=== PATIENT | female | born 1985 | race Caucasian/White ===

== ENCOUNTER → 2019-02-07 | Outpatient (CLI) | payer BC ==
--- NOTE | 2019-02-07 11:02 | Diagnostic Imaging Report ---
Indication: Bilateral flank pain and hematuria CT of the abdomen and pelvis without IV contrast. There is no prior study for comparison. The visualized portions of the lung bases are clear. There were no pleural fluid collections. There is no free intraperitoneal air. The liver shows no focal lesion. Gallbladder is surgically absent. Spleen shows no focal lesion is nonenlarged. The adrenals and pancreas appear normal. The kidneys bilaterally show no radiopaque calculi or hydronephrosis. There is no retroperitoneal mass or adenopathy. There's no ascites or abnormal fluid collection. Visualized bowel loops appear unremarkable. There is surgical scar in the intra-abdominal wall but no abnormal fluid collection. There is no abdominal wall hernia. The urinary bladder appears grossly unremarkable without contrast. Impression: Postop changes. No urinary tract stone or hydronephrosis. No abdominal mass or abnormal fluid collection. Dictated by: Dictated on workstation # [id number]
== END ==
LOC: RAD FS 10:33
PROVIDERS: ATTEND Nurse Practitioner Family
DX: N39.0 Urinary tract infection, site not specified (principal); Z98.890 Other specified postprocedural states
CPT/HCPCS: 74176

== ENCOUNTER → 2019-03-08 | Outpatient (CLI) | payer BC ==
--- NOTE | 2019-03-08 10:14 | Diagnostic Imaging Report ---
EXAMINATION: Lumbar spine at 9:25 AM INDICATION: Back pain AP, lateral and spot lateral views were obtained. There are no prior lumbar spine examinations available for comparison. The lateral view shows slight straightening of the lumbar spine. This may be secondary to muscle spasm and/or positioning. There is narrowing of the disc space at L5-S1. The other intervertebral disc spaces are well maintained. There is no fracture or acute bony abnormality appreciated. There is no sign of paraspinal mass. There is mild symmetrical sclerosis of the sacroiliac joints. IMPRESSION: 1. There is no evidence for an acute bony abnormality. 2. There is degenerative disc disease at L5-S1. If there is clinical concern regarding spinal stenosis or nerve root encroachment at this level, then MRI would be recommended for further study. Dictated by: Dictated on workstation # [id number]
== END ==
LOC: RAD FS 09:18
PROVIDERS: ATTEND Nurse Practitioner Family
DX: M51.26 Other intervertebral disc displacement, lumbar region (principal); M51.37 Other intervertebral disc degeneration, lumbosacral region
CPT/HCPCS: 72100

== ENCOUNTER 2019-07-02 12:00 | Emergency (ER) | payer BC ==
[~2019-07-02] VITALS: Ht 162.5 cm; Wt 115.4 kg
--- NOTE | 2019-07-02 12:20 | ED Chest Pain ---
General Stated Complaint: SOB; CHEST PAIN Source: patient Exam Limitations: no limitations History of Present Illness Date Seen by Provider: Jul 02, 2019 Time Seen by Provider: 12:05 Initial Comments The patient is a very pleasant 34-year-old female who presents for evaluation of chest pain and shortness of breath which started yesterday. She reports a his tory of coronary artery disease status post CA as well as hypertension and diabetes. She states that she had undiagnosed uncontrolled diabetes which was diagnosed when she had her heart attack. Upon arrival her oxygen saturation is in the 85-88% on room air range area she denies any known history of pulmonary problems. She took a baby aspirin this morning as she does every day. She denies fevers or chills, nausea or vomiting, productive cough, abdominal pain, back or flank pain, hemoptysis, palpitations, dizziness or syncope. 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 Associated Symptoms: denies symptoms Allergies and Home Medications Allergies Coded Allergies: ibuprofen (Verified Allergy, Unknown, 07/02/19) morphine (Verified Allergy, Unknown, 07/02/19) oxycodone (Verified Allergy, Unknown, 07/02/19) Home Medications Ipratropium/Albuterol Sulfate 3 Ml Ampul.neb, 3 ML IH Q4H PRN for SHORTNESS OF BREATH Prescribed by: TYLER JUAREZ on 07/02/19 1439 Levofloxacin 750 Mg Tablet, 750 MG PO DAILY Prescribed by: TYLER JUAREZ on 07/02/19 1439 Patient Home Medication List Home Medication List Reviewed: Yes Review of Systems Review of Systems Constitutional: no symptoms reported EENTM: No Symptoms Reported Respiratory: Shortness of Air Cardiovascular: Chest Pain Gastrointestinal: No Symptoms Reported Genitourinary: No Symptoms Reported Musculoskeletal: no symptoms reported Skin: no symptoms reported Psychiatric/Neurological: No Symptoms Reported Endocrine: No Symptoms Reported Hematologic/Lymphatic: No Symptoms Reported All Other Systems Reviewed Negative Unless Noted: Yes Past Fygynrj-Ncvjdb-Vuidaa Hx Past Med/Social Hx: Reviewed Nursing Past Med/Soc Hx Patient Social History Recent Foreign Travel: No Physical Exam Vital Signs Vital Signs - First Documented 07/02/19 07/02/19 12:00 12:10 Temp 36.8 Pulse 117 Resp 27 B/P (MAP) 122/85 (97) Pulse Ox 93 O2 Delivery Nasal Cannula O2 Flow Rate 5.00 FiO2 93 Capillary Refill : Height, Weight, BMI Height: '" Weight: lbs. oz. kg; BMI Method: General Appearance: No Apparent Distress, WD/WN HEENT: PERRL/EOMI, Normal ENT Inspection Neck: Full Range of Motion, Non Tender, Supple Respiratory: Chest Non Tender, Lungs Clear, Normal Breath Sounds, No Accessory Muscle Use, No Respiratory Distress Cardiovascular: Regular Rate, Rhythm, No Edema, No JVD, Normal Peripheral Pulses Gastrointestinal: Normal Bowel Sounds, Non Tender, Soft Extremity: Normal Capillary Refill, Normal Inspection, Normal Range of Motion, Non Tender Neurologic/Psychiatric: Alert, Oriented x3, No Motor/Sensory Deficits, Normal Mood/Affect Skin: Normal Color, Warm/Dry Progress/Results/Core Measures Results/Orders Lab Results Laboratory Tests Test 07/02/19 12:14 Range/Units White Blood Count 20.0 H 4.3-11.0 10^3/uL Red Blood Count 5.15 4.35-5.85 10^6/uL Hemoglobin 17.3 H 11.5-16.0 G/DL Hematocrit 54 H 35-52 % Mean Corpuscular Volume 104 H 80-99 FL Mean Corpuscular Hemoglobin 34 25-34 PG Mean Corpuscular Hemoglobin Concent 32 32-36 G/DL Red Cell Distribution Width 15.8 H 10.0-14.5 % Platelet Count 224 130-400 10^3/uL Mean Platelet Volume 11.2 H 7.4-10.4 FL Neutrophils (%) (Auto) 78 H 42-75 % Lymphocytes (%) (Auto) 15 12-44 % Monocytes (%) (Auto) 3 0-12 % Eosinophils (%) (Auto) 1 0-10 % Basophils (%) (Auto) 1 0-10 % Neutrophils # (Auto) 15.7 H 1.8-7.8 X 10^3 Lymphocytes # (Auto) 3.0 1.0-4.0 X 10^3 Monocytes # (Auto) 0.7 0.0-1.0 X 10^3 Eosinophils # (Auto) 0.2 0.0-0.3 10^3/uL Basophils # (Auto) 0.2 H 0.0-0.1 10^3/uL Neutrophils % (Manual) 82 % Lymphocytes % (Manual) 16 % Monocytes % (Manual) 2 % Eosinophils % (Manual) 0 % Basophils % (Manual) 0 % Band Neutrophils 0 % Blood Morphology Comment NORMAL D-Dimer 0.65 H 0.00-0.49 UG/ML Sodium Level 139 135-145 MMOL/L Potassium Level 4.3 3.6-5.0 MMOL/L Chloride Level 101 98-107 MMOL/L Carbon Dioxide Level 25 21-32 MMOL/L Anion Gap 13 5-14 MMOL/L Blood Urea Nitrogen 15 7-18 MG/DL Creatinine 0.49 L 0.60-1.30 MG/DL Estimat Glomerular Filtration Rate > 60 BUN/Creatinine Ratio 31 Glucose Level 254 H 70-105 MG/DL Calcium Level 9.5 8.5-10.1 MG/DL Corrected Calcium 10.0 8.5-10.1 MG/DL Total Bilirubin 0.3 0.1-1.0 MG/DL Aspartate Amino Transf (AST/SGOT) 15 5-34 U/L Alanine Aminotransferase (ALT/SGPT) 23 0-55 U/L Alkaline Phosphatase 140 H 40-136 U/L Troponin I < 0.30 <0.30 NG/ML Pro-B-Type Natriuretic Peptide 126.6 H <75.0 PG/ML Total Protein 7.3 6.4-8.2 GM/DL Albumin 3.4 3.2-4.5 GM/DL My Orders Orders - TYLER JUAREZ DO Cbc With Automated Diff (07/02/19 12:10) Chest 1 View Ap/Pa Only (07/02/19 12:10) Ekg Tracing (07/02/19 12:10) Comprehensive Metabolic Panel (07/02/19 12:10) O2 (07/02/19 12:10) Monitor-Rhythm Ecg Trace Only (07/02/19 12:10) Ed Iv/Invasive Line Start (07/02/19 12:10) Troponin I Fs (07/02/19 12:10) Probnp Fs (07/02/19 12:10) Fibrin Degradation Products (07/02/19 12:10) Manual Differential (07/02/19 12:14) Albuterol/Ipra Inhalation Soln (Duoneb I (07/02/19 12:45) Svn Small Volume Nebulizer (07/02/19 12:33) Aspirin Chewable Tablet (Baby Aspirin Ch (07/02/19 12:45) Ns Iv 1000 Ml (Sodium Chloride 0.9%) (07/02/19 13:00) Ceftriaxone For Iv Use (Rocephin For I (07/02/19 13:15) Azithromycin Injection (Zithromax Inject (07/02/19 13:15) Ct Angio Chest W (07/02/19 13:10) Iohexol Injection (Omnipaque 350 Mg/Ml 1 (07/02/19 13:30) Received Contrast (Hold Metformin- Contr (07/02/19 13:30) Sodium Chloride Flush (Catheter Flush Sy (07/02/19 13:30) Ns (Ivpb) (Sodium Chloride 0.9% Ivpb Bag (07/02/19 13:30) Medications Given in ED Current Medications Medications Dose Ordered Sig/Michael Route Start Time Stop Time Status Last Admin Dose Admin Albuterol/ Ipratropium 3 ml ONCE ONCE INH 07/02/19 12:45 07/02/19 12:46 DC 07/02/19 12:41 3 ML Aspirin 243 mg ONCE ONCE PO 07/02/19 12:45 07/02/19 12:46 DC 07/02/19 12:41 243 MG Azithromycin 500 mg/Sodium Chloride 250 ml @ 250 mls/hr ONCE ONCE IV 07/02/19 13:15 07/02/19 14:14 DC 07/02/19 13:47 250 MLS/HR Ceftriaxone Sodium 1000 mg/ Sterile Water 10 ml @ 200 mls/hr ONCE ONCE IV 07/02/19 13:15 07/02/19 13:17 DC 07/02/19 13:47 200 MLS/HR Iohexol 125 ml ONCE ONCE IV 07/02/19 13:30 07/02/19 13:32 DC 07/02/19 13:52 125 ML Sodium Chloride 10 ml NEEDED PRN IV 07/02/19 13:30 07/02/19 13:52 10 ML Sodium Chloride 100 ml ONCE ONCE IV 07/02/19 13:30 07/02/19 13:32 DC 07/02/19 13:52 80 ML Vital Signs/I&O 07/02/19 07/02/19 12:00 12:10 Temp 36.8 Pulse 117 Resp 27 B/P (MAP) 122/85 (97) Pulse Ox 93 O2 Delivery Nasal Cannula Nasal Cannula O2 Flow Rate 5.00 5.00 FiO2 93 Progress Progress Note : Progress Note @1413 - Patient informed of lab and imaging results showing bilateral pneumonia. The CTA chest is still pending. I explained the patient that I strongly recommend that she be admitted because she'll need to be on oxygen continuously as well as continuous pulse oximetry. She is adamantly refusing admission. She expresses verbal understanding of the risks and benefits of leaving AGAINST MEDICAL ADVICE including permanent disability or . @1442 - Explained to the patient and her family that she has a bilateral pneumonia and possible ARDS which is a potentially life-threatening condition. The patient expresses verbal understanding and has decision-making capacity at this time. She completely refuses to consider admission stating that her is out of town and she has to watch her children. Explained to the patient that she can return if she changes her mind. We were able to set up the patient with home oxygen although I do not agree with her plan to leave AGAINST MEDICAL ADVICE. She has been given prescriptions for Levaquin and DuoNeb treatments. EKG : Comment @1225 - Sinus tachycardia, rate of 115, left axis deviation is present, no acute ischemic findings noted, no STEMI, reviewed and interpreted by myself Diagnostic Imaging Comments [facility], [place] NAME: [facility] REC#: [id number] PT STATUS: REG ER : 1985 PHYSICIAN: TYLER JUAREZ DO ADMIT DATE: 07/02/19/ER FS Draft Date of Exam:07/02/19 CT ANGIO CHEST W PROCEDURE: CT angiography of the chest with contrast. TECHNIQUE: Multiple contiguous axial images were obtained through the chest after uneventful bolus administration of intravenous contrast. 3D reconstructed CTA MIP acquisitions were also performed. Auto Exposure Controls were utilized during the CT exam to meet ALARA standards for radiation dose reduction. INDICATION: Shortness of breath x2 days. Elevated d-dimer. COMPARISON: None FINDINGS: The central pulmonary arteries demonstrate no significant filling defects to suggest pulmonary embolism. More peripheral branches are somewhat obscured and not well visualized. Peripheral emboli would be difficult to exclude. Heart size is enlarged. There is presence of rather prominent coronary artery calcification and/or stent particularly in the region of the LAD, particularly for the patient's age. Thoracic aorta is normal in contour. No pathologically enlarged axillary lymph nodes. There is prominent mediastinal and hilar lymphadenopathy. Maximum short axis dimension subcarinal region up to approximately 11 mm. Left hilar lymphadenopathy short axis dimension 14 mm. Mildly prominent inferior posterior lymph node adjacent to the low esophagus. There is an approximately 15 x 12 mm mixed density nodule of the right thyroid lobe. There is rather extensive somewhat groundglass opacities throughout both lung ayala. Dustin lobar consolidation not demonstrated. No significant pleural effusion. Diffuse mild hepatic steatosis. Post cholecystectomy changes. Probable splenule noted anterior to the spleen. The visualized osseous structures demonstrate no acute findings. IMPRESSION: 1. No CT evidence for large central pulmonary embolism. 2. Extensive 5 lobe groundglass opacities throughout both lung ayala. These are nonspecific, could be reflective of underlying infectious or inflammatory process or underlying diffuse edema. Developing ARDS can have this finding. 3. There is cardiac enlargement. Prominent coronary artery calcification and/or coronary stent for the patient's age most pronounced involving the region of the left anterior descending coronary artery. 4. Prominent mediastinal and hilar lymphadenopathy may very well be reactive. 5. Right thyroid gland nodule. Follow-up nonemergent thyroid ultrasound imaging is recommended. Dictated on workstation # [id number] Departure Impression Primary Impression: Bilateral pneumonia Additional Impressions: Hypoxia Left against medical advice Disposition: 07 AGAINST MEDICAL ADVICE Condition: Against Medical Advice Departure-Patient Inst. Referrals: VIRGIL MEEK APRN (PCP) Primary Care Physician Patient Instructions: Adult Respiratory Distress Syndrome, Pneumonia, Adult (DC), Respiratory Distress Syndrome, Adult (DC) Add. Discharge Instructions: Please note he can change her mind and return to the emergency department at any time. Take the prescribed medication as directed. Follow-up with your doctor in the next 1-2 days. We were able to arrange for outpatient oxygen which should be worn continuously until your doctor tells her to stop. Scripts Ipratropium/Albuterol Sulfate (Iprat-Albut 0.5-3(2.5) mg/3 ml) 3 Ml Ampul.neb 3 ML IH Q4H PRN for SHORTNESS OF BREATH for 14 Days, #56 EACH Prov: TYLER JUAREZ DO 1/28/20 Levofloxacin (Levaquin) 750 Mg Tablet 750 MG PO DAILY for 5 Days, #5 TAB Prov: TYLER JUAREZ DO 07/02/19 TYLER JUAREZ DO Jul 02, 2019 12:20
[2019-07-02 12:25] LABS: HEMATOCRIT 54 % (35-52); HEMOGLOBIN 17.3 G/DL (11.5-16.0); MEAN CORPUSCULAR HEMOGLOBIN 34 PG (25-34); MEAN CORPUSCULAR HGB CONC 32 G/DL (32-36); MEAN CORPUSCULAR VOLUME 104 FL (80-99); PLATELET COUNT 224 10^3/uL (130-400); RED CELL DISTRIBUTION WIDTH 15.8 % (10.0-14.5)
[2019-07-02 12:26] LABS: BASOPHILS # (AUTO) 0.2 10^3/uL (0.0-0.1); BASOPHILS % (AUTO) 1 % (0-10); EOSINOPHILS # (AUTO) 0.2 10^3/uL (0.0-0.3); EOSINOPHILS % (AUTO) 1 % (0-10); LYMPHOCYTES % (AUTO) 15 % (12-44); MEAN PLATELET VOLUME 11.2 FL (7.4-10.4); MONOCYTES # (AUTO) 0.7 X 10^3 (0.0-1.0); MONOCYTES % (AUTO) 3 % (0-12); NEUTROPHILS # (AUTO) 15.7 X 10^3 (1.8-7.8); NEUTROPHILS % (AUTO) 78 % (42-75)
[2019-07-02] MEDS ORDERED: RT-ALBUTEROL/IPRATROPIUM 3 ML (DUONEB) VIAL INH ONE (12:45)
[2019-07-02] MEDS ORDERED: ASPIRIN 81 MG CHEW (CHILDREN'S ASA) PO ONE (12:45)
--- NOTE | 2019-07-02 12:50 | Diagnostic Imaging Report ---
INDICATION: Shortness of breath x 2 days. TECHNIQUE: Single view chest at 12:30 PM. CORRELATION STUDY: None. FINDINGS: Bilateral perihilar and basilar areas of infiltrate are noted. The heart size is enlarged. The vasculature is somewhat obscured. IMPRESSION: Bilateral patchy areas of infiltrate in the mid and lower lung ayala likely reflect underlying multilobar pneumonia. Superimposed edema is not excluded. Followup imaging would be recommended. Dictated by: Dictated on workstation # [id number]
[2019-07-02 12:54] LABS: BAND NEUTROPHILS 0 %; BASOPHILS % (MANUAL) 0 %; EOSINOPHILS % (MANUAL) 0 %; LYMPHOCYTES % (MANUAL) 16 %; MONOCYTES % (MANUAL) 2 %; NEUTROPHILS % (MANUAL) 82 %; RBC MORPH NORMAL
[2019-07-02] MEDS ORDERED: NS IV 1000 ML 1,000 ML IV SCH (13:00)
[2019-07-02 13:13] LABS: ALANINE AMINOTRANSFERASE 23 U/L (0-55); ALBUMIN 3.4 GM/DL (3.2-4.5); ALKALINE PHOSPHATASE 140 U/L (40-136); BILIRUBIN,TOTAL 0.3 MG/DL (0.1-1.0); BUN/CREATININE RATIO 31; CALCIUM 9.5 MG/DL (8.5-10.1); CARBON DIOXIDE 25 MMOL/L (21-32); CHLORIDE 101 MMOL/L (98-107); CREATININE SERUM 0.49 MG/DL (0.60-1.30); GFR ESTIMATED > 60; GLUCOSE 254 MG/DL (70-105); POTASSIUM 4.3 MMOL/L (3.6-5.0); SODIUM 139 MMOL/L (135-145); TOTAL PROTEIN 7.3 GM/DL (6.4-8.2)
[2019-07-02] MEDS ORDERED: cefTRIAXone FOR IV USE 1,000 MG in WATER (STERILE) FOR INJECTION 10 ML IV ONE (13:15)
[2019-07-02] MEDS ORDERED: AZITHROMYCIN INJECTION 500 MG in NS (IVPB) 250 ML IV ONE (13:15)
[2019-07-02] MEDS ORDERED: HOLD METFORMIN - RECEIVED CONTRAST 20 ML VIAL IV SCH (13:30)
[2019-07-02] MEDS ORDERED: CATHETER FLUSH 10 ML SYR IV PRN (13:30)
[2019-07-02] MEDS ORDERED: IOHEXOL 350 MG/ML 150 ML (OMNIPAQUE 350) VIAL IV ONE (13:30)
[2019-07-02] MEDS ORDERED: NS 100 ML (IVPB) BAG IV ONE (13:30)
--- NOTE | 2019-07-02 14:22 | NUR ---
Patient ambulated without supplemental approximatley 100 feet at this time; Oxygen saturation dropped to 71% on room air while ambulating. Oxygen reapplied at 5L and saturation increased to 90%.
--- NOTE | 2019-07-02 14:24 | Diagnostic Imaging Report ---
PROCEDURE: CT angiography of the chest with contrast. TECHNIQUE: Multiple contiguous axial images were obtained through the chest after uneventful bolus administration of intravenous contrast. 3D reconstructed CTA MIP acquisitions were also performed. Auto Exposure Controls were utilized during the CT exam to meet ALARA standards for radiation dose reduction. INDICATION: Shortness of breath x2 days. Elevated d-dimer. COMPARISON: None FINDINGS: The central pulmonary arteries demonstrate no significant filling defects to suggest pulmonary embolism. More peripheral branches are somewhat obscured and not well visualized. Peripheral emboli would be difficult to exclude. Heart size is enlarged. There is presence of rather prominent coronary artery calcification and/or stent particularly in the region of the LAD, particularly for the patient's age. Thoracic aorta is normal in contour. No pathologically enlarged axillary lymph nodes. There is prominent mediastinal and hilar lymphadenopathy. Maximum short axis dimension subcarinal region up to approximately 11 mm. Left hilar lymphadenopathy short axis dimension 14 mm. Mildly prominent inferior posterior lymph node adjacent to the low esophagus. There is an approximately 15 x 12 mm mixed density nodule of the right thyroid lobe. There is rather extensive somewhat groundglass opacities throughout both lung ayala. Dustin lobar consolidation not demonstrated. No significant pleural effusion. Diffuse mild hepatic steatosis. Post cholecystectomy changes. Probable splenule noted anterior to the spleen. The visualized osseous structures demonstrate no acute findings. IMPRESSION: 1. No CT evidence for large central pulmonary embolism. 2. Extensive 5 lobe groundglass opacities throughout both lung ayala. These are nonspecific, could be reflective of underlying infectious or inflammatory process or underlying diffuse edema. Developing ARDS can have this finding. 3. There is cardiac enlargement. Prominent coronary artery calcification and/or coronary stent for the patient's age most pronounced involving the region of the left anterior descending coronary artery. 4. Prominent mediastinal and hilar lymphadenopathy may very well be reactive. 5. Right thyroid gland nodule. Follow-up nonemergent thyroid ultrasound imaging is recommended. Dictated by: Dictated on workstation # [id number]
--- NOTE | 2019-07-02 14:27 | NUR ---
Patient is adamant about going home to her kids and refusing to be admitted. Patient was informed about the risks of going home and she understands. This RN called [facility] and they are going to get oxygen setup for the patient for when she goes home. Patient was also given a nebulizer.
[2019-07-02] MEDS ORDERED: IPRA3AMP31 IH (14:39)
[2019-07-02] MEDS ORDERED: LEVO750T9 PO (14:39)
[2019-07-02 15:10] VITALS: BP 122/71
== END 2019-07-02 15:10 | disposition left against medical advice (07) ==
LOC: EDUNIT# 12:00 → ER FS 12:02
DX: J18.9 Pneumonia, unspecified organism (principal); R09.02 Hypoxemia; I10 Essential (primary) hypertension; E11.9 Type 2 diabetes mellitus without complications; I25.2 Old myocardial infarction; Z88.6 Allergy status to analgesic agent; Z88.5 Allergy status to narcotic agent
CPT/HCPCS: 36415; 71045; 71275; 80053; 83880; 84484; 85007; 85027; 85379; 93005; 93041